=== PATIENT | female | born 1945 | race Two or more races ===

== ENCOUNTER 2016-09-02 17:49 | Inpatient (IN) | payer MEDICARE, OTHER ==
[~2016-09-02] VITALS: Ht 165.1 cm; Wt 76.2 kg
--- NOTE | 2016-09-02 17:50 | NUR ---
Bibra from home due to right ribcage pain sp fall yesterday,. Patient is alert, awake and oriented, however patient noted in mild distress, patient sating 95%, on o2 via nc. Denies chest pain. Patient noted diaphoretic, however patient is afebrile. No n/v reported. Patient noted with purplish discoloration on left side of body-- noted with amputated left upper extremity- 2003. Gowned and placed pt on tele monitor. Md Lin at
[2016-09-02] MEDS ORDERED: VENL150C2 PO (17:55)
[2016-09-02] MEDS ORDERED: MORPHINE SULFATE INJ 2 MG/ML DISP.SYRIN IV ONE (18:00)
[2016-09-02] MEDS ORDERED: IV NS 0.9% 500 ML BAG IV ONE ×2 (18:00→19:30)
[2016-09-02] MEDS ORDERED: ONDANSETRON HCL/PF 4 MG/2 ML VIAL IVP ONE (18:00)
[2016-09-02] MEDS ORDERED: IV SET PRIMARY PUMP SET 1 EA INFUS.SET MC ONE ×2 (18:01→19:57)
[2016-09-02] MEDS ORDERED: ONDANSETRON HCL/PF 4 MG/2 ML VIAL ONE ×2 (18:01→21:43)
[2016-09-02] MEDS ORDERED: IV NS 0.9% 500 ML IV ONE ×2 (18:01→19:56)
[2016-09-02] MEDS ORDERED: MORPHINE SULFATE INJ 4 MG/ML DISP.SYRIN ONE (18:01)
[2016-09-02] MEDS ORDERED: IPRATROPIUM NEB FS 0.5 MG/2.5 ML AMPUL.NEB ONE (18:04)
[2016-09-02] MEDS ORDERED: ALBUTEROL FS 2.5 MG/3 ML VIAL.NEB ONE ×2 (18:04→21:35)
--- NOTE | 2016-09-02 18:15 | NUR ---
IN FILE OPERATOR AT BS
--- NOTE | 2016-09-02 18:15 | NUR ---
RT AT BS FRO BREATHING TX AND ABG
[2016-09-02 18:18] LABS: BASOPHILS % (AUTO) 0.2 % (0.0-2.0); EOSINOPHILS # (AUTO) 0.1 /CMM (0.0-0.7); EOSINOPHILS % (AUTO) 0.3 % (0.0-6.0); HEMATOCRIT 46 % (33-45); HEMOGLOBIN 15.3 g/dL (11.5-14.8); LYMPHOCYTES # (AUTO) 1.7 /CMM (0.8-4.8); LYMPHOCYTES % (AUTO) 9.7 % (20.0-44.0); MEAN CORPUSCULAR HEMOGLOBIN 31 PG (26.0-33.0); MEAN CORPUSCULAR HGB CONC 33 g/dl (31.0-36.0); MEAN CORPUSCULAR VOLUME 92 fL (82-100); MONOCYTES # (AUTO) 0.8 /CMM (0.1-1.30); MONOCYTES % (AUTO) 4.6 % (2.0-12.0); NEUTROPHILS # (AUTO) 15.4 /CMM (1.8-8.9); NEUTROPHILS % (AUTO) 85.2 % (43.0-81.0); PLATELET COUNT (AUTO) 419 /CMM (150-450); RDW COEFFICIENT OF VARIATION 13.9 (11.5-15.0); RED BLOOD CELL COUNT(AUTO) 4.98 MIL/uL (4.0-5.2)
[2016-09-02] MEDS ORDERED: DEXAMETHASONE SOD PHOSPHATE 4 MG/ML VIAL ONE (18:25)
[2016-09-02] MEDS ORDERED: DEXAMETHASONE SOD PHOSPHATE 10 MG/ML VIAL ONE (18:26)
[2016-09-02] MEDS ORDERED: IV NS 0.9% 1,000 ML ONE (18:27)
[2016-09-02] MEDS ORDERED: IV SET PRIMARY 1 EA INFUS.SET MC ONE ×2 (18:27→19:57)
[2016-09-02] MEDS ORDERED: DEXAMETHASONE SOD PHOSPHATE 10 MG/ML VIAL IV ONE (18:30)
[2016-09-02] MEDS ORDERED: IPRATROPIUM NEB FS 0.5 MG/2.5 ML AMPUL.NEB NEB ONE (18:30)
[2016-09-02] MEDS ORDERED: IV NS 0.9% 1,000 ML BAG IV ONE (18:30)
[2016-09-02] MEDS ORDERED: ALBUTEROL FS 2.5 MG/3 ML VIAL.NEB NEB ONE (18:30)
[2016-09-02 18:32] LABS: INR 1.06 (0.87-1.13); PROTHROMBIN TIME 11.1 SECS (9.5-12.7)
[2016-09-02 18:38] LABS: TROPONIN I 0.088 ng/mL (0.00-0.056)
--- NOTE | 2016-09-02 18:40 | NUR ---
pt was place don bipap-- 11/11 r16 fio2 50%
[2016-09-02 18:47] VITALS: BP 158/80
[2016-09-02 18:47] LABS: ABG BASE EXCESS 5.5 mmol/L; ABG OXYGEN SATURATION 81.6 % (92.0-98.5); ABG PCO2 53.1 mmHg (35.0-45.0); ABG PH 7.396 (7.350-7.450); ABG PO2 46.8 mmHg (75.0-100.0); ABG TOTAL HEMOGLOBIN 15.3 G/dL (12.0-16.0); AaDO2 90.2 mmHg; COHb 1.4 % (0.5-1.5); MetHb 0.4 % (0.0-1.5); O2Hb 80.1 % (94.0-97.0); SITE, ABG Right Radial; VENT MODE, BG NASAL CANNULA
[2016-09-02] MEDS ORDERED: ASPIRIN 325 MG TABLET PO ONE (19:00)
[2016-09-02] MEDS ORDERED: ASPIRIN 325 MG TABLET ONE (19:10)
--- NOTE | 2016-09-02 19:10 | NUR ---
PT REPORT RECIVED FROM ZAIN HEADLEY, PT ON BIPAP AND IN NO APPARENT DISTRESS, WILL CONTINUE TO MONITOR,.
--- NOTE | 2016-09-02 19:15 | NUR ---
report given to nurse Matt for leticia
--- NOTE | 2016-09-02 19:25 | NUR ---
PT TO CT WITH RT WILL CONTINUE TO MONITOR.
[2016-09-02] MEDS ORDERED: PIPERACILLIN /TAZOBACTAM 3.375 G in IV D5W 50 ML IV ONE (19:30)
[2016-09-02] MEDS ORDERED: IOHEXOL-300 100 ML VIAL IV ONE (19:37)
[2016-09-02] MEDS ORDERED: CT SWABBABLE VALVE TRANS SET 1 EA INFUS.SET MC ONE (19:37)
[2016-09-02] MEDS ORDERED: IV NS 0.9% 250 ML IV ONE (19:37)
[2016-09-02 19:38] LABS: LACTIC ACID 2.1 mmol/L (0.4-2.0)
[2016-09-02] MEDS ORDERED: PIPERACILLIN /TAZOBACTAM 3.375 G VIAL IV ONE (19:56)
[2016-09-02] MEDS ORDERED: IV D5W 50 ML IV ONE (19:57)
--- NOTE | 2016-09-02 20:00 | NUR ---
PT STATES SHE IS FEELING ALOT BETTER AND IS COMFORTABLE IN BED, PT FAMILY AT BEDSIDE WILL CONTINUE TO MONITOR.
[2016-09-02 20:30] LABS: BILIRUBIN,DIRECT 0.3 mg/dL (0.0-0.2); BILIRUBIN,TOTAL 0.9 mg/dL (0.2-1.0)
[2016-09-02 20:42] LABS: LACTIC ACID REFLEX 2.1 mmol/L (0.4-1.9)
[2016-09-02 20:50] VITALS: BP 113/73
--- NOTE | 2016-09-02 20:56 | NUR ---
PT RESTING IN BED IN NO APPARENT DISTRESS PT FAMILY IS AT BEDSIDE WILL CONTINUE TO MONITOR.
[2016-09-02 21:09] LABS: ABG BASE EXCESS 0.1 mmol/L; ABG OXYGEN SATURATION 91.5 % (92.0-98.5); ABG PCO2 59.4 mmHg (35.0-45.0); ABG PH 7.289 (7.350-7.450); ABG PO2 71.7 mmHg (75.0-100.0); ABG TOTAL HEMOGLOBIN 13.4 G/dL (12.0-16.0); AaDO2 72.4 mmHg; COHb 0.8 % (0.5-1.5); MetHb 0.4 % (0.0-1.5); O2Hb 90.4 % (94.0-97.0); SITE, ABG Right Radial; VENT MODE, BG BIPAP 16 20/5 30%
[2016-09-02] MEDS ORDERED: ALBUTEROL FS 2.5 MG/3 ML VIAL.NEB NEB PRN ×2 (21:30→22:00)
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
[2016-09-02] MEDS ORDERED: ONDANSETRON HCL/PF 4 MG/2 ML VIAL IV PRN (22:00)
[2016-09-02 22:15] VITALS: BP 132/17
[2016-09-02 22:18] VITALS: BP 132/78
[2016-09-02] MEDS ORDERED: MAGNESIUM HYDROXIDE 30 ML UDC PO PRN (22:30)
[2016-09-02] MEDS ORDERED: ACETAMINOPHEN 325 MG TABLET PO PRN (22:30)
[2016-09-02] MEDS ORDERED: ONDANSETRON HCL/PF 4 MG/2 ML VIAL IVP PRN (22:30)
[2016-09-02] MEDS ORDERED: Z GUARD REMEDY 2 OZ OINT TP PRN (22:30)
[2016-09-02] MEDS ORDERED: ZOLPIDEM TARTRATE 5 MG TABLET PO PRN (22:30)
[2016-09-02 23:00] VITALS: BP 134/71
[2016-09-02] MEDS ORDERED: VENLAFAXINE XR 150 MG CAP.SR.24H PO SCH (23:00)
[2016-09-02] MEDS ORDERED: ALBUTEROL FS 2.5 MG/0.5 ML VIAL.NEB NEB SCH (23:00)
[2016-09-02 23:32] LABS: ABG BASE EXCESS 1.7 mmol/L; ABG OXYGEN SATURATION 95.3 % (92.0-98.5); ABG PCO2 54.5 mmHg (35.0-45.0); ABG PH 7.337 (7.350-7.450); ABG TOTAL HEMOGLOBIN 12.9 G/dL (12.0-16.0); AaDO2 79.4 mmHg; MetHb 0.6 % (0.0-1.5); O2Hb 93.8 % (94.0-97.0); SITE, ABG Right Radial; VENT MODE, BG NASAL CANNULA
[2016-09-03] VITALS (24 sets, daily range): BP systolic 89–151; BP diastolic 41–86
[2016-09-03] MEDS ORDERED: PANTOPRAZOLE 40 MG VIAL ONE (00:08)
[2016-09-03] MEDS ORDERED: methylPREDNISolone SOD SUCC 40 MG/ML VIAL ONE (00:08)
[2016-09-03] MEDS: PANTOPRAZOLE 40 MG VIAL IV SCH ×2 (00:15→22:07)
[2016-09-03] MEDS: methylPREDNISolone SOD SUCC 40 MG/ML VIAL IV SCH ×4 (00:15→16:07)
[2016-09-03] MEDS ORDERED: IPRATROPIUM NEB FS 0.5 MG/2.5 ML AMPUL.NEB ONE (00:23)
[2016-09-03] MEDS ORDERED: ALBUTEROL FS 2.5 MG/0.5 ML VIAL.NEB ONE (00:23)
[2016-09-03] MEDS: IPRATROPIUM NEB FS 0.5 MG/2.5 ML AMPUL.NEB NEB SCH ×4 (00:29→19:34)
[2016-09-03 01:16] LABS: TROPONIN I 0.06 ng/mL (0.00-0.056)
[2016-09-03 01:24] LABS: LACTIC ACID 2.1 mmol/L (0.4-2.0)
[2016-09-03] MEDS ORDERED: ENOXAPARIN SODIUM 40 MG/0.4 ML DISP.SYRIN SQ SCH (01:30)
[2016-09-03] MEDS ORDERED: PIPERACILLIN /TAZOBACTAM 3.375 G VIAL IV ONE (01:50)
[2016-09-03] MEDS ORDERED: IV D5W 50 ML IV ONE (01:50)
[2016-09-03] MEDS: PIPERACILLIN /TAZOBACTAM 3.375 G in IV D5W 50 ML IV SCH ×5 (01:56→23:40)
[2016-09-03] MEDS ORDERED: ENOXAPARIN SODIUM 40 MG/0.4 ML DISP.SYRIN SQ ONE (01:56)
[2016-09-03] MEDS ORDERED: IV SET PRIMARY PUMP SET 1 EA INFUS.SET MC ONE (03:34)
[2016-09-03] MEDS ORDERED: IV NS 0.9% 250 ML IV PRN (04:00)
[2016-09-03 05:35] LABS: HEMATOCRIT 39 % (33-45); HEMOGLOBIN 12.4 g/dL (11.5-14.8); LYMPHOCYTES # (AUTO) 0.7 /CMM (0.8-4.8); LYMPHOCYTES % (AUTO) 5.3 % (20.0-44.0); MEAN CORPUSCULAR HEMOGLOBIN 30 PG (26.0-33.0); MEAN CORPUSCULAR HGB CONC 32 g/dl (31.0-36.0); MEAN CORPUSCULAR VOLUME 95 fL (82-100); MONOCYTES # (AUTO) 0.1 /CMM (0.1-1.30); MONOCYTES % (AUTO) 0.8 % (2.0-12.0); NEUTROPHILS # (AUTO) 12.2 /CMM (1.8-8.9); NEUTROPHILS % (AUTO) 93.9 % (43.0-81.0); PLATELET COUNT (AUTO) 294 /CMM (150-450); RDW COEFFICIENT OF VARIATION 14.6 (11.5-15.0); RED BLOOD CELL COUNT(AUTO) 4.09 MIL/uL (4.0-5.2)
[2016-09-03 05:40] LABS: CALCIUM, SERUM 8.2 mg/dL (8.5-10.1); CREATININE 0.6 mg/dL (0.6-1.3); MAGNESIUM 2.3 mg/dL (1.8-2.4); POTASSIUM 3.6 mmol/L (3.5-5.1)
--- NOTE | 2016-09-03 06:09 | NUR ---
ICU/RN- NOTES ZOSYN DOSE FOR 0600 NOT GIVEN DUE TO DAYLIGHT SAVINGS TIME. TOO CLOSE FROM LAST DOSE.
--- NOTE | 2016-09-03 06:45 | NUR ---
ICU/RN- CLOSING NOTES NO ACUTE DISTRESS. ALL NEEDS ATTENDED AND MET. PT UNABLE TO PROVIDE SPUTUM AND URINE SPECIMEN AT THIS TIME. WILL ENDORSE TO AM SHIFT FOR CONTINUATION OF CARE.
[2016-09-03] MEDS ORDERED: PANTOPRAZOLE 40 MG TABLET.DR PO SCH (07:30)
--- NOTE | 2016-09-03 07:30 | NUR ---
RN NOTES RECEIVED PATIENT IN BED ALERT, AWAKE, ORIENTEDX4 WITH BREATHING NORMAL, EVEN AND UNLABORED. NO SOB NOTED. NO ACUTE DISTRESS NOTED. ON 6L O2 VIA VENTURI MASK, SATURATING WELL. PAIN MANAGEMENT PER ORDER. TELE MONITOR REVEALS SR, HR=88. IV RAC 20G IS PATENT AND INTACT, NO INFILTRATION NOTED. BOWEL SOUND PRESENT. PULSES PRESENT. SAFETY MEASURE OBSERVED. ALL NEEDS ATTENDED. CALL LIGHT WITH IN REACH. WILL CONT TO MONITOR.
[2016-09-03] MEDS ORDERED: FEE PK DOSING 1 MIN EA MC ONE ×2 (07:43→08:40)
[2016-09-03] MEDS: ALBUTEROL FS 2.5 MG/3 ML VIAL.NEB NEB SCH ×3 (07:51→19:34)
[2016-09-03] MEDS ORDERED: VANCOMYCIN 1 GM in IV D5W 250 ML IV SCH (08:00)
[2016-09-03] MEDS ORDERED: SECONDARY IV SET 1 EA INFUS.SET MC ONE ×2 (08:04→12:51)
[2016-09-03] MEDS: IV NS 0.9% 1,000 ML IV PRN ×2 (08:10→20:51)
[2016-09-03] MEDS: MORPHINE SULFATE INJ 2 MG/ML DISP.SYRIN IV PRN ×4 (08:25→20:54)
[2016-09-03 08:30] LABS: ABG BASE EXCESS 1.1 mmol/L; ABG OXYGEN SATURATION 91.1 % (92.0-98.5); ABG PCO2 50.5 mmHg (35.0-45.0); ABG PH 7.352 (7.350-7.450); ABG PO2 62.9 mmHg (75.0-100.0); ABG TOTAL HEMOGLOBIN 12.5 G/dL (12.0-16.0); AaDO2 91.7 mmHg; COHb 0.8 % (0.5-1.5); MetHb 0.7 % (0.0-1.5); O2Hb 89.7 % (94.0-97.0); SITE, ABG Right Radial; VENT MODE, BG VENTI MASK
[2016-09-03 13:08] LABS: ABG OXYGEN SATURATION 93.8 % (92.0-98.5); ABG PCO2 51.2 mmHg (35.0-45.0); ABG PH 7.385 (7.350-7.450); ABG PO2 70.7 mmHg (75.0-100.0); ABG TOTAL HEMOGLOBIN 12.1 G/dL (12.0-16.0); AaDO2 119.3 mmHg; COHb 1.7 % (0.5-1.5); MetHb 0.5 % (0.0-1.5); O2Hb 91.7 % (94.0-97.0); SITE, ABG Right Radial; VENT MODE, BG VENTURI MASK @ 35%
[2016-09-03 13:36] LABS: ALBUMIN 3.3 g/dL (3.4-5.0); BILIRUBIN,DIRECT 0.1 mg/dL (0.0-0.2); BILIRUBIN,TOTAL 0.8 mg/dL (0.2-1.0); TOTAL PROTEIN, SERUM 6.7 g/dL (6.4-8.2)
[2016-09-03 13:44] LABS: THYROID STIMULATING HORMONE 0.46 uIU/mL (0.358-3.74); URIC ACID 6.1 mg/dL (2.6-7.2)
[2016-09-03 14:23] LABS: APPEARANCE,URINE CLEAR (CLEAR); BILIRUBIN,URINE NEGATIVE (NEGATIVE); BLOOD, URINE NEGATIVE Ery/uL (NEGATIVE); COLOR,URINE YELLOW (YELLOW); KETONES,URINE NEGATIVE (NEGATIVE); LEUKOCYTE ESTERASE ,URINE NEGATIVE (NEGATIVE); NITRITE, URINE NEGATIVE (NEGATIVE); PROTEIN,URINE NEGATIVE (NEGATIVE); UGLUCOSE NEGATIVE (NEGATIVE)
[2016-09-03 14:31] LABS: ADD URINE CULTURE NO; BACTERIA,URINE None seen /HPF (None Seen); RBC,URINE NONE SEEN /HPF (0-2); SQUAMOUS EPITHELIAL CELL,UR Few /HPF (None Seen); WBC,URINE 0-2 /HPF (0-3)
[2016-09-03] MEDS: VENLAFAXINE XR 75 MG CAP.SR.24H PO SCH (16:07)
--- NOTE | 2016-09-03 19:24 | NUR ---
RN NOTES PATIENT ENDORSED TO NEXT SHIFT IN STABLE CONDITION WITH BREATHING NORMAL, EVEN AND UNLABORED. NO SOB NOTED. NO ACUTE DISTRESS NOTED. SATURATING WELL. KEPT CLEAN, DRY AND COMFORTABLE. ALL NEEDS ATTENDED. SAFETY MEASURE OBSERVED. CALL LIGHT WITH IN REACH. WILL CONT TO MONITOR.
--- NOTE | 2016-09-03 19:30 | NUR ---
ICU/RN- PT IN BED A/OX4. DENIES PAIN AT THIS TIME. PT IS ON VENTURI MASK W/ FIO2 35% AND O2 9L/MIN. DENIES SOB AT THIS TIME. PT L ARM IS AMPUTATED W/ BRUISING NOTED ON SITE. ON MONITOR W/ SR 90S. HL IN R AC 20 G PATENT AND INTACT. NS @ 100ML/HR. INSTRUCTED PT TO USE CALL LIGHT FOR ASSISTANCE. CALL LIGHT W/ IN REACH. BED LOW AND IN LOCKED POSITION. WILL MONITOR MT ACCORDINGLY.
[2016-09-03] MEDS: VANCOMYCIN 0.75 GM in IV D5W 250 ML IV SCH (20:53)
[2016-09-03] MEDS: ENOXAPARIN SODIUM 40 MG/0.4 ML DISP.SYRIN SQ SCH (20:54)
--- NOTE | 2016-09-03 21:00 | NUR ---
ICU/RN- HELD LOVENOX DOSE DUE TO CT LUNG BX IN AM.
[2016-09-04] VITALS (21 sets, daily range): BP systolic 105–149; BP diastolic 38–99
--- NOTE | 2016-09-04 | NUR ---
ICU/RN- PLACED PT ON NPO STATUS FOR PROCEDURE IN AM.
[2016-09-04] MEDS: MORPHINE SULFATE INJ 2 MG/ML DISP.SYRIN IV PRN ×3 (04:45→13:52)
[2016-09-04 04:56] LABS: BASOPHILS % (AUTO) 0.3 % (0.0-2.0); EOSINOPHILS % (AUTO) 0.1 % (0.0-6.0); HEMATOCRIT 37 % (33-45); HEMOGLOBIN 12.1 g/dL (11.5-14.8); LYMPHOCYTES # (AUTO) 0.5 /CMM (0.8-4.8); LYMPHOCYTES % (AUTO) 3.2 % (20.0-44.0); MEAN CORPUSCULAR HEMOGLOBIN 31 PG (26.0-33.0); MEAN CORPUSCULAR HGB CONC 33 g/dl (31.0-36.0); MEAN CORPUSCULAR VOLUME 95 fL (82-100); MONOCYTES # (AUTO) 0.7 /CMM (0.1-1.30); NEUTROPHILS # (AUTO) 13.1 /CMM (1.8-8.9); NEUTROPHILS % (AUTO) 91.4 % (43.0-81.0); PLATELET COUNT (AUTO) 331 /CMM (150-450); RED BLOOD CELL COUNT(AUTO) 3.89 MIL/uL (4.0-5.2); WHITE BLOOD COUNT (AUTO) 14.4 K/uL (4.3-11.0)
[2016-09-04 05:10] LABS: ALBUMIN 3.2 g/dL (3.4-5.0); BILIRUBIN,TOTAL 0.7 mg/dL (0.2-1.0); CALCIUM, SERUM 8.6 mg/dL (8.5-10.1); CREATININE 0.5 mg/dL (0.6-1.3); MAGNESIUM 2.5 mg/dL (1.8-2.4); POTASSIUM 4.1 mmol/L (3.5-5.1); TOTAL PROTEIN, SERUM 6.5 g/dL (6.4-8.2)
[2016-09-04 05:13] LABS: TROPONIN I 0.027 ng/mL (0.00-0.056)
[2016-09-04 05:24] LABS: PROTHROMBIN TIME 10.8 SECS (9.5-12.7)
[2016-09-04] MEDS: PIPERACILLIN /TAZOBACTAM 3.375 G in IV D5W 50 ML IV SCH ×4 (05:27→23:31)
--- NOTE | 2016-09-04 07:00 | NUR ---
ICU/RN- CLOSING NOTES NO ACUTE DISTRESS. ALL NEEDS ATTENDED AND MET. WILL ENDORSE TO AM SHIFT FOR CONTINUATION OF CARE.
[2016-09-04] MEDS: IPRATROPIUM NEB FS 0.5 MG/2.5 ML AMPUL.NEB NEB SCH ×3 (07:24→20:48)
[2016-09-04] MEDS: ALBUTEROL FS 2.5 MG/3 ML VIAL.NEB NEB SCH ×3 (07:24→20:48)
--- NOTE | 2016-09-04 07:45 | NUR ---
ICU/RN - Initial Notes Received pt in bed awake, AOX3. Complains of right rib cage pain and phantom limb pain (JOHANA amputation). On o2 @ 2lpm via nasal cannula, with o2 saturation 92-94%. No s/s of respiratory distress. On tele reading SR 82. IVF infusing well. Safety and comfort measures in place. Will continue to monitor pt closely.
[2016-09-04] MEDS: methylPREDNISolone SOD SUCC 40 MG/ML VIAL IV SCH ×3 (08:10→16:49)
[2016-09-04] MEDS: VANCOMYCIN 0.75 GM in IV D5W 250 ML IV SCH (08:10)
[2016-09-04] MEDS: VENLAFAXINE XR 75 MG CAP.SR.24H PO SCH (08:28)
--- NOTE | 2016-09-04 08:28 | NUR ---
ICU/RN - Notes Pt complains of right sided rib pain and phantom limb pain of JOHANA amputation, on pain scale 9 out of 10. Administered Morphine 2mg IVP as ordered for PRN pain. Comfort measures rendered. Will reassess pain accordingly.
[2016-09-04] MEDS ORDERED: MIDAZOLAM HCL 5MG/ML VIAL 25 MG/5 ML VIAL IV ONE (11:00)
[2016-09-04] MEDS ORDERED: NALOXONE PREFILLED SYRINGE 2 MG/2 ML SYRINGE IV ONE (11:00)
[2016-09-04] MEDS ORDERED: FENTANYL PF 250MCG/5ML AMPUL IV ONE (11:00)
[2016-09-04] MEDS: IV NS 0.9% 1,000 ML IV PRN (12:13)
--- NOTE | 2016-09-04 13:40 | NUR ---
ICU/RN - Notes Pt refused to have CT needle biopsy to be done today. Radiologist, Dr Mcguire spoke with patient at bedside, and aware pt refused procedure. Dr Zendejas also at bedside, aware that pt does not want procedure to be done today.
--- NOTE | 2016-09-04 14:30 | NUR ---
ICU/RN - Notes Pt finished eating lunch, and states pain relief, rates pain level 6 out of 10.
--- NOTE | 2016-09-04 15:00 | NUR ---
ICU/RN - Notes PT at bedside for evaluation.
--- NOTE | 2016-09-04 15:45 | NUR ---
ICU/RN - Notes Pt's son Javier called and notified regarding pt's transfer to Telemetry.
[2016-09-04] MEDS: HYDROMORPHONE 1 MG/1 ML DISP.SYRIN IV PRN ×3 (16:49→23:15)
--- NOTE | 2016-09-04 16:49 | NUR ---
ICU/RN - Notes Pt complains of right sided rib pain and phantom limb pain of JOHANA amputation, on pain scale 9 out of 10. Administered Dilaudid 1mg IVP as ordered for PRN pain. Comfort measures rendered. Will reassess pain accordingly.
--- NOTE | 2016-09-04 17:15 | NUR ---
RN NOTES RECEIVED PT IN STABLE CONDITION FOR DEON.
--- NOTE | 2016-09-04 17:15 | NUR ---
ICU/RN - Transfer Pt transferred to Telemetry 116-1 via ACLS protocol. Javier Berrios at bedside.
--- NOTE | 2016-09-04 18:48 | NUR ---
RN CLOSING NOTES PT IN STABLE CONDITION, IV CDI, NO SIGNS OF INFECTION/INFILTRATION, ALL MD ORDERS CARRIED OUT, CALL LIGHT WITHIN EASY REACH, SAFETY MEASURES MAINTAINED, REPORT GIVEN TO NIGHT NURSE FOR DEON.
--- NOTE | 2016-09-04 20:15 | NUR ---
Requested something for pain.Medicated with Dilaudid 1 mg IM after inserting a heplock on the right arm,22g tolerated well.The one attached had infiltrated
[2016-09-04] MEDS: VANCOMYCIN 1 GM in IV D5W 250 ML IV SCH (21:00)
[2016-09-04] MEDS ORDERED: SECONDARY IV SET 1 EA INFUS.SET MC ONE (21:00)
[2016-09-04] MEDS: PANTOPRAZOLE 40 MG VIAL IV SCH (21:39)
[2016-09-04] MEDS: ENOXAPARIN SODIUM 40 MG/0.4 ML DISP.SYRIN SQ SCH (21:41)
--- NOTE | 2016-09-04 22:20 | NUR ---
Assembled a DVT devise and place on patient's leg as ordered,tolerating well
--- NOTE | 2016-09-04 23:00 | NUR ---
Patient is resting quietly,no complaints
--- NOTE | 2016-09-04 23:45 | NUR ---
Patient is awake.Offered her something for sleep.Medicated with Ambien 5 mg after accepting,no problems.
[2016-09-05] VITALS: BP 121/79
[2016-09-05] MEDS: HYDROMORPHONE 1 MG/1 ML DISP.SYRIN IV PRN ×6 (02:18→19:52)
[2016-09-05] MEDS: IV NS 0.9% 1,000 ML IV PRN ×2 (02:19→16:27)
[2016-09-05] MEDS: HYDROCODONE/APAP 5/325MG 1 EACH TABLET PO PRN ×4 (02:57→18:51)
--- NOTE | 2016-09-05 03:00 | NUR ---
Receiving pain medication ATC to relieve pain but patient still c/o pain.Charge nurse later notify the doctor who said to give the ordered [place].Gave [place] after the Dilaudid and that's what gave patient some relieve.She was talking and held me in a conversation for about 45 minutes,which she had not done during the shift.Usually we had short conversations.
[2016-09-05 04:00] VITALS: BP_SYST 113; BP_SYST 146; BP_DIAS 56; BP_DIAS 94
[2016-09-05 04:14] LABS: VIT D, 25-HYDROXY 7.8 ng/mL (30.0-100.0)
[2016-09-05] MEDS: PIPERACILLIN /TAZOBACTAM 3.375 G in IV D5W 50 ML IV SCH ×3 (05:17→17:44)
--- NOTE | 2016-09-05 06:00 | NUR ---
Resting quietly,no problems.Patient has been medicated fo pain.
[2016-09-05 06:56] LABS: EOSINOPHILS % (AUTO) 0.1 % (0.0-6.0); HEMATOCRIT 37 % (33-45); LYMPHOCYTES # (AUTO) 0.5 /CMM (0.8-4.8); LYMPHOCYTES % (AUTO) 3.6 % (20.0-44.0); MEAN CORPUSCULAR HEMOGLOBIN 31 PG (26.0-33.0); MEAN CORPUSCULAR HGB CONC 32 g/dl (31.0-36.0); MEAN CORPUSCULAR VOLUME 96 fL (82-100); MONOCYTES # (AUTO) 1.1 /CMM (0.1-1.30); MONOCYTES % (AUTO) 8.1 % (2.0-12.0); NEUTROPHILS # (AUTO) 12.1 /CMM (1.8-8.9); NEUTROPHILS % (AUTO) 88.2 % (43.0-81.0); PLATELET COUNT (AUTO) 351 /CMM (150-450); RDW COEFFICIENT OF VARIATION 14.9 (11.5-15.0); RED BLOOD CELL COUNT(AUTO) 3.88 MIL/uL (4.0-5.2); WHITE BLOOD COUNT (AUTO) 13.7 K/uL (4.3-11.0)
[2016-09-05 07:09] LABS: CALCIUM, SERUM 7.7 mg/dL (8.5-10.1); CREATININE 0.6 mg/dL (0.6-1.3); MAGNESIUM 2.2 mg/dL (1.8-2.4); PHOSPHORUS 2.8 mg/dL (2.5-4.9); POTASSIUM 3.7 mmol/L (3.5-5.1)
[2016-09-05] MEDS: IPRATROPIUM NEB FS 0.5 MG/2.5 ML AMPUL.NEB NEB SCH ×3 (07:14→19:23)
[2016-09-05] MEDS: ALBUTEROL FS 2.5 MG/3 ML VIAL.NEB NEB SCH ×3 (07:14→19:23)
--- NOTE | 2016-09-05 07:25 | NUR ---
RN INITIAL NOTES: Received patient on bed during rounds, awake alert x4 able to make needs known at times, needs anticipated and attended. Patient appears anxious. With RFA IV Plug flushed with NS and patent, with IVF infusing well NS at 100cc/hr. On O2 at 2LPM via nasal cannula saturating at 85%. HOB elevated, aspiration precaution observed. On telemonitoring SR. NO SOB, No LOC, respirations are even and unlabored, no acute distress noted. Kept clean and dry. Provided safety and comfort measures. Bed low and locked position, fall precaution observed. Will turn and reposition, offload heels as per protocol. Suction secretions PRN. o continue to monitor accordingly.
[2016-09-05 08:00] VITALS: BP 128/78
[2016-09-05] MEDS: VANCOMYCIN 1 GM in IV D5W 250 ML IV SCH ×2 (08:47→21:38)
[2016-09-05] MEDS: methylPREDNISolone SOD SUCC 40 MG/ML VIAL IV SCH ×3 (08:47→17:28)
--- NOTE | 2016-09-05 08:47 | NUR ---
PT. ANXIOUS ,HYPERVENTILATING,VERBALIZED "I AM FRAID HERE',RR - 30,WILL OBTAIN ABG PER MD.
[2016-09-05] MEDS: VENLAFAXINE XR 75 MG CAP.SR.24H PO SCH (08:48)
[2016-09-05 08:49] VITALS: BP 128/78
[2016-09-05 09:39] LABS: ABG BASE EXCESS 5.7 mmol/L; ABG OXYGEN SATURATION 83.8 % (92.0-98.5); ABG PH 7.325 (7.350-7.450); ABG PO2 49.6 mmHg (75.0-100.0); ABG TOTAL HEMOGLOBIN 12.6 G/dL (12.0-16.0); AaDO2 130.5 mmHg; COHb 1.5 % (0.5-1.5); MetHb 0.7 % (0.0-1.5); SITE, ABG Right Radial; VENT MODE, BG NASAL CANNULA
--- NOTE | 2016-09-05 10:15 | NUR ---
RN NOTES: Patient placed on Venturi mask ar 40% FIO2 and saturating at 90-91%, patient is more calm and not anxious.
[2016-09-05 16:00] VITALS: BP 159/103
[2016-09-05 16:13] LABS: CARCINOEMBRYONIC AG (CEA) 10.3 ng/mL (0.0-4.7)
--- NOTE | 2016-09-05 18:47 | NUR ---
RN NOTES: Patient remained stable within shift, no signs and symptoms of distress. All PRN Narcotics medication given as ordered. Kept clean and dry. Fall precaution observed. To endorsed to next shift for continuity of care.
[2016-09-05 20:00] VITALS: BP 153/77
--- NOTE | 2016-09-05 20:00 | NUR ---
AIR OPERATIONS MANAGER: Received patient awake alert x 3 with periods of anxiety, able to make needs known at times, needs anticipated and attended. Patient appears anxious at this time. With RFA IV with IVF infusing well NS at 100cc/hr. Pain management with Dilaudid and Kane alternative. On O2 at 10 LPM via venturi mask saturating at 90-93% . HOB elevated, aspiration precaution observed. On tele monitoring SR. NO SOB, No LOC, respirations are even and unlabored, no acute distress noted. Kept clean and dry. Provided safety and comfort measures. Bed low and locked position, fall precaution observed. Will turn and reposition, offload heels as per protocol. Suction secretions PRN. Ongoing monitoring,.
[2016-09-05] MEDS: ENOXAPARIN SODIUM 40 MG/0.4 ML DISP.SYRIN SQ SCH (21:39)
[2016-09-05] MEDS: PANTOPRAZOLE 40 MG VIAL IV SCH (21:39)
[2016-09-06] VITALS: BP 138/74
[2016-09-06] MEDS: PIPERACILLIN /TAZOBACTAM 3.375 G in IV D5W 50 ML IV SCH ×4 (00:21→17:32)
[2016-09-06] MEDS: HYDROMORPHONE 1 MG/1 ML DISP.SYRIN IV PRN ×2 (00:23→06:22)
[2016-09-06] MEDS: HYDROCODONE/APAP 5/325MG 1 EACH TABLET PO PRN ×2 (02:58→12:52)
[2016-09-06 04:00] VITALS: BP_SYST 138; BP_SYST 140; BP_DIAS 74; BP_DIAS 83
[2016-09-06] MEDS: IV NS 0.9% 1,000 ML IV PRN (06:18)
--- NOTE | 2016-09-06 06:39 | NUR ---
3RD GRADE READING TEACHER: PT BEING STABLE THE WHOLE NIGHT, SOMETIMES WITH PERIODS OF SEVERE ANXIETY, CALM DOWN WITH PAIN MEDS DILAUDID. PAIN SCORE 9/10, JUST DILAUDID IV GIVEN. PT RESTING COMFORTABLY AT THIS TIME. WILL ENDORSE CARE TO NEXT SHIFT.
[2016-09-06 07:31] LABS: BASOPHILS % (AUTO) 0.2 % (0.0-2.0); EOSINOPHILS % (AUTO) 0.2 % (0.0-6.0); HEMATOCRIT 38 % (33-45); HEMOGLOBIN 12.3 g/dL (11.5-14.8); LYMPHOCYTES # (AUTO) 0.6 /CMM (0.8-4.8); LYMPHOCYTES % (AUTO) 5.1 % (20.0-44.0); MEAN CORPUSCULAR HEMOGLOBIN 31 PG (26.0-33.0); MEAN CORPUSCULAR HGB CONC 33 g/dl (31.0-36.0); MEAN CORPUSCULAR VOLUME 96 fL (82-100); MONOCYTES # (AUTO) 1.2 /CMM (0.1-1.30); MONOCYTES % (AUTO) 9.5 % (2.0-12.0); NEUTROPHILS # (AUTO) 10.8 /CMM (1.8-8.9); PLATELET COUNT (AUTO) 319 /CMM (150-450); RDW COEFFICIENT OF VARIATION 15.3 (11.5-15.0); RED BLOOD CELL COUNT(AUTO) 3.94 MIL/uL (4.0-5.2); WHITE BLOOD COUNT (AUTO) 12.7 K/uL (4.3-11.0)
--- NOTE | 2016-09-06 07:39 | NUR ---
RN NOTES RECEIVED PT IN BED. AWAKE, ALERT, ORIENTED X 3. IN NO APPARENT DISTRESS. RESPIRATIONS EVEN AND UNLABORED; ON VENTURI MASK. DENIES PAIN AND DISCOMFORT. WILL CONTINUE TO MONITOR
[2016-09-06 07:40] LABS: BILIRUBIN,TOTAL 1.5 mg/dL (0.2-1.0); CREATININE 0.5 mg/dL (0.6-1.3); MAGNESIUM 2.4 mg/dL (1.8-2.4); PHOSPHORUS 2.8 mg/dL (2.5-4.9); POTASSIUM 3.8 mmol/L (3.5-5.1); TOTAL PROTEIN, SERUM 6.1 g/dL (6.4-8.2)
[2016-09-06] MEDS: ALBUTEROL FS 2.5 MG/3 ML VIAL.NEB NEB SCH ×2 (07:53→13:18)
[2016-09-06] MEDS: IPRATROPIUM NEB FS 0.5 MG/2.5 ML AMPUL.NEB NEB SCH ×2 (07:53→13:18)
[2016-09-06 08:00] VITALS: BP 150/75
[2016-09-06] MEDS: methylPREDNISolone SOD SUCC 40 MG/ML VIAL IV SCH ×3 (09:06→16:38)
[2016-09-06] MEDS: VENLAFAXINE XR 75 MG CAP.SR.24H PO SCH (09:06)
[2016-09-06] MEDS: VANCOMYCIN 1 GM in IV D5W 250 ML IV SCH (09:06)
--- NOTE | 2016-09-06 09:30 | NUR ---
RN NOTES PT SEEN BY PHYSICAL THERAPY; PT REFUSED. OFFERED X3- DISCUSSED BENEFITS BUT CONTINUED TO REFUSE. PER PT, WILL DISCHARGE FROM SERVICE. NOTED
[2016-09-06 12:00] VITALS: BP 152/90
--- NOTE | 2016-09-06 13:30 | NUR ---
RN NOTES PT NOTED TO BE ANXIOUS. VERBALIZED THAT SHE JUST WANTS TO GO HOME. SAID SHE WANTS TO SPEAK WITH HER DOCTOR. INFORMED PARI LEONG.WILL CONTINUE TO MONITOR
--- NOTE | 2016-09-06 14:30 | NUR ---
RN NOTES PT SEEN AND EXAMINED BY PARI LEONG- WITH NEW ORDER FOR DISCHARGE. PT INSTRUCTIONS IS TO FFUP OUTPATIENT WITH LUNG NEEDLE BIOPSY.VERBALIZED UNDERSTANDING. EXITCARE DONE. DISCHARGE PAPERS EXPLAINED TO PT. PT REFUSED DISCHARGE PHOTOS. WILL CONTINUE TO MONITOR
--- NOTE | 2016-09-06 15:00 | NUR ---
RN NOTES FUR STYLIST, DAQUAN, SAID HOME HEALTH WILL BE ARRANGED. SAID THAT TRANSPORTATION WILL BE HERE BY 6PM. NOTED. PT'S SON, FRANNIE, UPDATED AND MADE AWARE. APPRECIATED INFORMATION
[2016-09-06] MEDS ORDERED: ALPRAZOLAM 0.25 MG TABLET PO ONE (15:30)
[2016-09-06] MEDS ORDERED: SULF1TAB48 PO (15:44)
[2016-09-06] MEDS ORDERED: MONT10TA22 GT (15:44)
[2016-09-06] MEDS ORDERED: PRED20TA PO (15:44)
[2016-09-06] MEDS ORDERED: ALBU2.5V38 NEB (15:44)
[2016-09-06] MEDS ORDERED: IPRA0.2S9 IH (15:44)
[2016-09-06] MEDS ORDERED: FLUT1DIS3 INH (15:44)
[2016-09-06 16:00] VITALS: BP 161/87
--- NOTE | 2016-09-06 19:00 | NUR ---
RN NOTES PT PICKED UP BY AMBULANCE FOR ORDERED DISCHARGE. IN NO DISTRESS. LEFT WITH STABLE VS.
== END 2016-09-06 19:15 | disposition home or self-care (01) | DRG 871 ==
LOC: ER 17:51 → ICU 19:50 → TELE1 09-04 17:11 → MEDSG1 09-05 11:19 → TELE-TD 09-05 19:29 → TELE1 09-05 19:30
PROVIDERS: ADMIT Nurse Practitioner Acute Care; ATTEND Nurse Practitioner Acute Care
DX: A41.9 Sepsis, unspecified organism (principal); I21.4 Non-ST elevation (NSTEMI) myocardial infarction; J96.01 Acute respiratory failure with hypoxia; J96.02 Acute respiratory failure with hypercapnia; J18.9 Pneumonia, unspecified organism; J44.1 Chronic obstructive pulmonary disease with (acute) exacerbation; S22.080A Wedge compression fracture of T11-T12 vertebra, initial encounter for closed fracture; E87.2 Acidosis; J98.11 Atelectasis; S22.41XA Multiple fractures of ribs, right side, initial encounter for closed fracture; W18.30XA Fall on same level, unspecified, initial encounter; Z89.202 Acquired absence of left upper limb, unspecified level; E86.0 Dehydration; K76.0 Fatty (change of) liver, not elsewhere classified; R29.6 Repeated falls; Z87.891 Personal history of nicotine dependence; Z99.81 Dependence on supplemental oxygen
CPT/HCPCS: 36415; 36600; 71010-TC; 71260-TC; 80048-TC; 80053-TC; 80061-TC; 80076-TC; 80202-TC; 81000-TC; 82247-TC; 82248-TC; 82306; 82378; 82746; 82803-TC; 83540-TC; 83605-TC; 83615-TC; 83735-TC; 84100-TC; 84443-TC; 84484-TC; 84550-TC; 85025-TC; 85610-TC; 85652-TC; 85730-TC; 87040-TC; 87070-TC; 87081-TC; 87086-TC; 93307-TC; 94660; 94799-TC; 97001-TC; 97110-TC; 99082-TC; A4606; C9113; J1100; J1170; J1650; J2250; J2270; J2310; J2405; J2543; J2920; J3010; J3370; J7030; J7040; J7050; J7060; Q9967; Z7610